=== PATIENT | male | born 1975 | race Caucasian/White ===

== ENCOUNTER 2018-11-25 23:01 | Emergency (ER) | payer OTHER ==
[~2018-11-25] VITALS: Ht 167.6 cm; Wt 73.5 kg
[~2018-11-25 23:01] MED LIST: ATIVAN0.5 MG PO; CARAFATE 1 GM TA1 G1 PO; CLARITIN10 MG PO; LOPRESSOR100 M1 PO; OMEPRAZOLE 20 M20 M1 PO
[2018-11-25 23:02] VITALS: BP 147/78
[2018-11-25] MEDS ORDERED: MELATONIN5 M1 PO (23:38)
[2018-11-25] MEDS ORDERED: BENADRYL25 MG PO (23:38)
== END 2018-11-25 23:49 | disposition home or self-care (01) ==
LOC: ER 23:01
DX: I10 Essential (primary) hypertension (principal); G47.9 Sleep disorder, unspecified; F41.9 Anxiety disorder, unspecified